=== PATIENT | female | born 1980 | race Caucasian/White ===

== ENCOUNTER 2020-11-24 09:22 | Outpatient (CLI) | payer SELFPAY ==
[~2020-11-24] VITALS: Ht 175.3 cm; Wt 90.4 kg
[2020-11-24 13:28] VITALS: BP 135/61; PULSE 67; TEMP 99
[2020-11-24] MEDS ORDERED: PROAIR HFA0.09 MG/AC IH (13:36)
[2020-11-24] MEDS ORDERED: ADVIL200 MG PO (13:36)
[2020-11-24] MEDS ORDERED: BENADRYL25 M2 PO (13:37)
[2020-11-24] MEDS ORDERED: TYLENOL 500MG500 MG PO (13:37)
[2020-11-24] MEDS ORDERED: CLARITIN 1010 MG/TAB PO (13:38)
[2020-11-24] MEDS ORDERED: MUCINEX 60600 MG/TA1 PO (13:39)
[2020-11-24] MEDS ORDERED: SUDAFED30 MG PO (13:39)
[2020-11-24 13:40] VITALS: BP 120/79; PULSE 72
[2020-11-24 14:00] VITALS: BP 115/84; PULSE 64
[2020-11-24 14:30] VITALS: BP 120/73; PULSE 64
== END 2020-11-24 15:01 ==
LOC: EUO 09:22
DX: U07.1 COVID-19 (principal); E66.9 Obesity, unspecified; J98.4 Other disorders of lung
CPT/HCPCS: Q0244

== ENCOUNTER → 2022-05-28 | Outpatient (CLI) | payer BC ==
[~2022-05-28] MED LIST: ADVIL200 MG PO; BENADRYL25 M2 PO; CLARITIN 1010 MG/TAB PO; MUCINEX 60600 MG/TA1 PO; PROAIR HFA0.09 MG/AC IH; SUDAFED30 MG PO; TYLENOL 500MG500 MG PO
== END ==
LOC: MC.RAD 08:55
DX: N63.41 Unspecified lump in right breast, subareolar (principal)

== ENCOUNTER → 2022-05-29 | Outpatient (CLI) | payer BC | LOC: MC.RAD 12:30 | DX: N63.10 Unspecified lump in the right breast, unspecified quadrant (principal) | CPT/HCPCS: A4648 ==

== ENCOUNTER → 2022-06-11 | Outpatient (CLI) | payer BC | LOC: COL.VAS 11:30 | DX: C50.311 Malignant neoplasm of lower-inner quadrant of right female breast (principal) ==

== ENCOUNTER → 2022-07-05 | Outpatient (CLI) | payer BC | LOC: MC.RAD 08:07 | DX: C50.311 Malignant neoplasm of lower-inner quadrant of right female breast (principal) ==

== ENCOUNTER → 2023-04-24 | Outpatient (CLI) | payer BC ==
[~2023-04-24] MED LIST changes: +COMPAZINE 110 MG/TAB PO; +FIRST-MOUTHWASH1 KIT PO; +NORCO 325 MG-51 TAB PO; +PEPTO BISMOL262 MG PO; +PRILOSEC 20MG20 MG PO
== END ==
LOC: COL.VAS 07:57
DX: I34.0 Nonrheumatic mitral (valve) insufficiency (principal); C50.311 Malignant neoplasm of lower-inner quadrant of right female breast

== ENCOUNTER → 2023-10-08 | Outpatient (CLI) | payer BC ==
[~2023-10-08] MED LIST changes: +Iohexol 300 - 100 ML VIAL IV ONE; +NS 100 ML IV SCH
== END ==
LOC: COL.RAD 08:28
DX: C50.311 Malignant neoplasm of lower-inner quadrant of right female breast (principal); K76.9 Liver disease, unspecified
CPT/HCPCS: Q9967